=== PATIENT | male | born 1955 | race Caucasian/White ===

== ENCOUNTER → 2020-12-29 07:53 | Outpatient (REF) | payer OTHER, SELFPAY | LOC: ANHLAB 07:53 | PROVIDERS: PCP Family Medicine; Visit Provider Nurse Practitioner | DX: C44.329 Squamous cell carcinoma of skin of other parts of face (principal) | CPT/HCPCS: 88305; 88331 ==

== ENCOUNTER → 2021-10-20 14:24 | Outpatient (REF) | payer MEDICARE, SELFPAY | LOC: ANHLAB 14:24 | PROVIDERS: PCP Family Medicine; Visit Provider Nurse Practitioner | DX: C44.41 Basal cell carcinoma of skin of scalp and neck (principal) | CPT/HCPCS: 88305 ==

== ENCOUNTER → 2022-01-11 10:29 | Outpatient (REF) | payer MEDICARE, SELFPAY | LOC: ANHLAB 10:29 | PROVIDERS: PCP Family Medicine; Visit Provider Nurse Practitioner | DX: C44.41 Basal cell carcinoma of skin of scalp and neck (principal) | CPT/HCPCS: 88304; 88305; 88331; 88342 ==

== ENCOUNTER 2022-11-01 09:00 | Outpatient (NON) | payer OTHER, SELFPAY | END 2022-11-01 09:01 | disposition home or self-care (01) | LOC: ANHLAB 11-03 10:43 | PROVIDERS: PCP Family Medicine; Visit Provider Nurse Practitioner | DX: D22.5 Melanocytic nevi of trunk (principal) | CPT/HCPCS: 88305 ==